=== PATIENT | female | born 1970 | race Caucasian/White ===

== ENCOUNTER 2019-01-05 00:50 | Emergency (ER) | payer MEDICAID ==
[~2019-01-05] VITALS: Ht 165.1 cm; Wt 82.6 kg
[~2019-01-05 00:50] MED LIST: ASPI-1093 PO; GLIP10TA3 PO; IBUP-974 PO; LISI-420 PO; ORE25 PO; OSCD500 PO; PANT40EC PO; PRAV20TA2 PO; SITA50TA3 PO
[2019-01-05 00:54] VITALS: BP 145/80
--- NOTE | 2019-01-05 01:00 | NUR ---
Amb to bed 12 with son.
--- NOTE | 2019-01-05 01:02 | NUR ---
PATIENT PRESENTS ERWITH C/O PAIN AND VAGINAL BLEEDING TODAY. PT STATED SHE HAD SOME N/V BUT DENIES DIARRHEA. PT STATED SHE WAS VOMITING BROWN STUFF DUE TO EATING MADAN N A BOX, AND FEELS SHE HAS FOOD POISONING. PT ALSO STATES THAT SHE IS ON HER MENSTRAL AND IS CRAMPING.PT STATED SHE HAS HX OF GASTRITIS. PT IS A/OX4/ PATIENT STATES PAIN OF 6/10 AT THIS TIME; VSS; PATIENT POSITIONED FOR COMFORT; HOB ELEVATED; BEDRAILS UP X2; BED DOWN. ER MD MADE AWARE OF PT STATUS.
[2019-01-05] MEDS ORDERED: KETOROLAC 30 MG/ML VIAL IM ONE (01:20)
--- NOTE | 2019-01-05 02:05 | NUR ---
PT SLEEPING IN BED, VITALS STABLE
--- NOTE | 2019-01-05 03:25 | NUR ---
Patient discharged with v/s stable. Written and verbal after care instructions given and explained. Patient alert, oriented and verbalized understanding of instructions. Ambulatory with steady gait. All questions addressed prior to discharge. ID band removed. Patient advised to follow up with PMD. Rx of NAPROSYN WAS given. Patient educated on indication of medication including possible reaction and side effects. Opportunity to ask questions provided and answered.
[2019-01-05 03:28] VITALS: BP 133/73
== END 2019-01-05 03:25 | disposition home or self-care (01) ==
LOC: MED 00:50
DX: N93.8 Other specified abnormal uterine and vaginal bleeding (principal); R10.30 Lower abdominal pain, unspecified; E11.9 Type 2 diabetes mellitus without complications; I10 Essential (primary) hypertension; Z79.82 Long term (current) use of aspirin; Z79.1 Long term (current) use of non-steroidal anti-inflammatories (NSAID); Z79.84 Long term (current) use of oral hypoglycemic drugs; Z79.899 Other long term (current) drug therapy
CPT/HCPCS: 81025; 96372; 99283; J1885